=== PATIENT | female | born 1965 | race Caucasian/White ===

== ENCOUNTER 2019-08-20 11:38 | Emergency (ER) | payer BC, SELFPAY ==
[2019-08-20 11:42] VITALS: BP 157/91; PULSE 69; RESP 18; TEMP 36.2; O2SAT 98; BMI 26.2
--- NOTE | 2019-08-20 11:52 | W.ED.ALLEREA ---
HPI - Allergic Reaction General: Chief complaint: Allergic Reaction Stated complaint: bee sting/allergic Time Seen by Provider: 08/20/19 11:43 Source: patient Mode of arrival: ambulatory Limitations: no limitations History of Present Illness: HPI narrative: 54-year-old female here after getting an insect sting to her lower lip roughly 30 minutes ago. She states she is concerned that she has had severe allergic reactions in the past. She states she had some tongue swelling at first since resolved. She does have EpiPen at home but did not use it as it is . She took 2 Benadryl at home. Denies any shortness of breath or swelling at this time. She has no hives at this time. MD complaint: allergic reaction Associated symptoms: Deny abdominal pain, nausea or vomiting Review of Systems Const: Denies: fever(s), chills, body aches or change in appetite Eyes: Denies: blurry vision or eye discomfort ENMT: Denies: throat pain or dental pain Card: Denies: chest pain Resp: Denies: dyspnea GI: Denies: abdominal pain, nausea, vomiting or diarrhea : Denies: dysuria Musc: Denies: neck pain or back pain Skin/Breast: Reports: erythema Neuro: Denies: headache(s) Psych: Denies: depression Chris/Lymph: Denies: easy bruising All/Imm: Denies: urticaria Physical Exam Const: COMMON NORMALS: no acute distress, patient oriented x3 and healthy appearing HENMT: COMMON NORMALS: normocephalic and atraumatic HEAD & SCALP: normocephalic and atraumatic Eye: COMMON NORMALS: Equal, round and reactive pupils present and EOMs intact bilaterally PUPIL: Yes Equal, round and reactive pupils present Neck/C-Spine: COMMON NORMALS: full ROM and supple Chest: COMMONS NORMALS: normal inspection of the chest and normal palpation of entire chest wall Resp: COMMON NORMALS: normal respiratory effort, No retractions, No use of accessory muscles and clear to auscultation bilaterally AUSCULTATION: clear to auscultation bilaterally Cardio: COMMON NORMALS: regular rate, regular rhythm and No murmurs present (Cardio) RATE: regular rate RHYTHM: regular rhythm GI: COMMON NORMALS: Normal to inspection, nondistended, normoactive bowel sounds present, Soft to palpation, non-tender and no masses PALPATION: Yes Soft to palpation Extremity: COMMON NORMALS: normal to inspection and full ROM Neuro: COMMON NORMALS: patient oriented x3, moves all extremities and no focal motor deficits Psych: COMMON NORMALS: mental status grossly normal, Normal thought process present and cooperative THOUGHT PROCESS: Normal thought process present Skin: COMMON NORMALS: no rashes or lesions noted and no wounds NARRATIVE SKIN EXAM: Insect sting to lower lip GENERAL SKIN EXAM: no rashes or lesions noted Course Vital Signs: Vital signs: Vital Signs Temperature 97.2 F L 08/20/19 11:42 Pulse Rate 64 08/20/19 11:53 Respiratory Rate 18 08/20/19 11:53 Blood Pressure 157/91 08/20/19 11:53 Pulse Oximetry 100 08/20/19 11:53 MDM - Allergic Reaction MDM Narrative: Medical decision making narrative: Patient presents with an allergic reaction. Patient feels much improved here after Solu-Medrol and Benadryl. She has no swelling or hives. Will prescribe her an EpiPen and she is stable for discharge. She is to return if worsening. Discharge Plan Discharge Patient Disposition: Home, Self-Care Clinical Impression: Allergic reaction Qualifiers: Encounter type: initial encounter Qualified Code(s): T78.40XA - Allergy, unspecified, initial encounter Condition: Stable Prescriptions: New EpiPen 2-Trace 0.3 mg/0.3 mL auto-injector 0.3 mg IM Q1H PRN (Reason: anaphylaxis) Qty: 1 RF: 0 No Action Lipitor 40 mg Tablet 40 mg PO DAILY RF: 0 cetirizine 10 mg Tablet 10 mg PO DAILY RF: 0 aspirin 81 mg Tablet,Delayed Release (Dr/Ec) 81 mg PO DAILY RF: 0 Motrin IB 200 mg Tablet 200 mg PO Q6H PRN (Reason: Pain) RF: 0 ProAir HFA 90 mcg/actuation Hfa Aerosol Inhaler 1 puff INHALATION QID PRN (Reason: Shortness Of Breath) RF: 0 Proventil HFA 90 mcg/actuation Hfa Aerosol Inhaler 1 puff INHALATION QID PRN (Reason: Shortness Of Breath) RF: 0 Discharge Orders: Discharge Order (Routine); Ordered 08/20/19 Ordered By: Mariela Mendieta Discharge Diet: Advance as tolerated Discharge Activity: Resume usual activity Patient Instructions: Anaphylaxis (ED) Coding Level of Care Code ED Developmental Education Instructor for Chg Fwd Exam Comprehensive
[2019-08-20 11:53] VITALS: BP 157/91; PULSE 64; RESP 18; O2SAT 100
[2019-08-20] MEDS: diphenhydrAMINE 50 mg/mL SDV 1mL IVP (12:03)
[2019-08-20 13:31] VITALS: BP 123/64; PULSE 52; RESP 16; TEMP 36.5; O2SAT 100
== END 2019-08-20 13:35 | disposition home or self-care (01) ==
PROVIDERS: Emergency Provider Emergency Medicine
DX: T78.40XA Allergy, unspecified, initial encounter (principal); Z79.82 Long term (current) use of aspirin
CPT/HCPCS: 12345; 96374; 96375; 99282; 99283; J1200; J2930

== ENCOUNTER → 2020-05-23 10:03 | Outpatient (BNVA) | payer BC, SELFPAY | PROVIDERS: Visit Provider Obstetrics & Gynecology | DX: R10.2 Pelvic and perineal pain (principal); N85.4 Malposition of uterus; N83.292 Other ovarian cyst, left side | CPT/HCPCS: 76830 ==

== ENCOUNTER → 2020-05-28 14:45 | Outpatient (BNVA) | payer BC, SELFPAY | PROVIDERS: Visit Provider Obstetrics & Gynecology | DX: N95.0 Postmenopausal bleeding (principal); R10.2 Pelvic and perineal pain | CPT/HCPCS: 83001 ==

== ENCOUNTER → 2020-06-03 08:21 | Outpatient (BNVA) | payer BC, SELFPAY | PROVIDERS: Visit Provider Obstetrics & Gynecology | DX: N95.0 Postmenopausal bleeding (principal) | CPT/HCPCS: 88305 ==

== ENCOUNTER 2020-07-31 11:59 | Outpatient (CLI) | payer BC, SELFPAY ==
--- NOTE | 2020-07-31 12:00 | MM_ITS ---
WS: [id number] SCREENING DIGITAL MAMMOGRAM WITH CAD HISTORY: Z12.39 - Encounter for other screening for malignant neoplasm... COMPARISON: None available. Bilateral CC and MLO views submitted. Computer aided detection analyzed. Breast composition: There are scattered areas of fibroglandular density. Round nodule measuring 5 mm seen on the LEFT MLO projection posteriorly. Not identified on the CC projection. This may be a lymph node but a lucent hilum is not identified. There are also benign calcifications in the RIGHT breast. MM/[place] [id number] IMPRESSION: BI-RADS: 0-Incomplete: Need additional imaging evaluation FOLLOW UP: Need Additional Imaging LEFT breast: Spot compression views (CC and MLO). True ML. Ultrasound to follow if abnormality persists.
== END 2020-07-31 12:00 | disposition home or self-care (01) ==
LOC: RADSHAW 12:00
PROVIDERS: Visit Provider Obstetrics & Gynecology
DX: Z12.31 Encounter for screening mammogram for malignant neoplasm of breast (principal)
CPT/HCPCS: 77067

== ENCOUNTER 2020-08-19 08:44 | Outpatient (CLI) | payer BC, SELFPAY ==
--- NOTE | 2020-08-19 09:00 | MM_ITS ---
WS: [id number] ADDITIONAL VIEWS LEFT MAMMOGRAM LEFT BREAST ULTRASOUND HISTORY: Lymph node versus mass. COMPARISON: 07/31/2020 LEFT MAMMOGRAM: Spot compression views and true ML. Well-circumscribed 5 mm nodule in the upper outer quadrant of the LEFT breast towards the axillary ta il. Margins are well circumscribed. Fatty hilum is not definitely visualized but this is probably a l ymph node. LEFT BREAST ULTRASOUND 2-D and color Doppler imaging submitted. Ultrasound directed to the axillary tail of the LEFT breast. At 2:00, 6 cm from the nipple is a benig n-appearing lymph node measuring 5 mm. MM/[place] [id number] IMPRESSION: BI-RADS: 2-Benign FOLLOW UP: 1 Year Follow-up
--- NOTE | 2020-08-19 09:35 | US_ITS ---
WS: [id number] ADDITIONAL VIEWS LEFT MAMMOGRAM LEFT BREAST ULTRASOUND HISTORY: Lymph node versus mass. COMPARISON: 07/31/2020 LEFT MAMMOGRAM: Spot compression views and true ML. Well-circumscribed 5 mm nodule in the upper outer quadrant of the LEFT breast towards the axillary ta il. Margins are well circumscribed. Fatty hilum is not definitely visualized but this is probably a l ymph node. LEFT BREAST ULTRASOUND 2-D and color Doppler imaging submitted. Ultrasound directed to the axillary tail of the LEFT breast. At 2:00, 6 cm from the nipple is a benig n-appearing lymph node measuring 5 mm. US/US breast LT limited* [id number] IMPRESSION: BI-RADS: 2-Benign FOLLOW UP: 1 Year Follow-up
== END 2020-08-19 08:45 | disposition home or self-care (01) ==
LOC: RADSHAW 08:47
PROVIDERS: Visit Provider Obstetrics & Gynecology
DX: R92.2 Inconclusive mammogram (principal); N63.21 Unspecified lump in the left breast, upper outer quadrant
CPT/HCPCS: 76642; 77065

== ENCOUNTER 2020-11-24 11:33 | Emergency (ER) | payer BC, SELFPAY ==
[2020-11-24] VITALS (7 sets, daily range): BP systolic 124–177; BP diastolic 56–75; PULSE 56–76; RESP 16–18; TEMP 36.6–36.8; O2SAT 98–100; BMI 26.2
--- NOTE | 2020-11-24 12:28 | CTR_ITS ---
PROCEDURE INFORMATION: Exam: CTA Chest Without And With Contrast Exam date and time: 11/24/2020 12:28 PM Age: 55 years old Clinical indication: Sternal or substernal pain; Patient HX: C/O substernal cp after pulling injury and feeling a pop ; Additional info: Dissection TECHNIQUE: Imaging protocol: Computed tomographic angiography of the chest without and with contrast. 3D rendering (Not supervised by radiologist): MIP and/or 3D reconstructed images were created by the technologist. Radiation optimization: All CT scans at this facility use at least one of these dose optimization techniques: automated exposure control; mA and/or kV adjustment per patient size (includes targeted exams where dose is matched to clinical indication); or iterative reconstruction. Contrast material: OMNI 350; Contrast volume: 95 ml; Contrast route: INTRAVENOUS (IV); COMPARISON: CR XR chest 1V portable [id number] 11/24/2020 1:29 PM RADIATION DOSE METRICS: Total DLP (mGy-cm): 623.55 FINDINGS: Pulmonary arteries: Normal. No pulmonary emboli. Aorta: Unremarkable. No aortic aneurysm. No aortic dissection. Lungs: Unremarkable. No consolidation. No masses. Pleural spaces: Unremarkable. No pneumothorax. No pleural effusion. Heart: Multivessel atherosclerotic disease which involves the coronary arteries. Lymph nodes: Unremarkable. No enlarged lymph nodes. Bones/joints: There are small degenerative Schmorl's nodes in the T4, T5, and T6 vertebra associated with minimal chronic appearing anterior compression deformities of the T4 through T6 superior endplates. There are [id number] degenerative changes in the thoracic spine. Soft tissues: Unremarkable. CT/CT angio chest [id number] IMPRESSION: 1. Multivessel atherosclerotic disease which involves the coronary arteries. 2. There are small degenerative Schmorl's nodes in the T4 through T6 vertebra associated with minimal chronic appearing anterior compression deformities of the T4 through T6 superior endplates. 3. No evidence for aortic dissection. No pulmonary embolus. Radiation Dose CTDIVOL = (mGy): DLP = 623.55 (mGy-cm)
--- NOTE | 2020-11-24 12:28 | XRR_ITS ---
PROCEDURE INFORMATION: Exam: XR Chest Exam date and time: 11/24/2020 12:28 PM Age: 55 years old Clinical indication: Sternal or substernal pain; Patient HX: C/O substernal cp after feeling a pop TECHNIQUE: Imaging protocol: XR of the chest. Views: 1 view. COMPARISON: [place] [id number] 08/19/2020 9:07 AM FINDINGS: Lungs: Unremarkable. No consolidation. Pleural spaces: Unremarkable. No pleural effusion. No pneumothorax. Heart/Mediastinum: Unremarkable. No cardiomegaly. Bones/joints: Unremarkable. XR/XR chest 1V portable [id number] IMPRESSION: No acute findings. Radiation Dose CTDIVOL = (mGy): DLP = (mGy-cm)
--- NOTE | 2020-11-24 12:29 | ECG_ITS ---
[facility] Test Date: 2020-11-24 Pat Name: Karo Freitas Department: Room: Gender: Female Electrical Products Sales Engineer: : 1965 Requested By: Tadeo Lopez Order Number: [id number] Acevedo MD: Luz Burciaga M.D. Measurements Intervals [place] Rate: 60 P: 63 ND: 133 QRS: 63 QRSD: 96 T: 51 QT: 417 QTc: 418 Interpretive Statements SINUS RHYTHM No previous ECG available for comparison Electronically Signed On 11-24-2020 21:00:55 CDT by Luz Burciaga M.D. [id number]
--- NOTE | 2020-11-24 12:30 | W.ED.GENADLT ---
HPI - General Adult General: Chief complaint: General Medical Stated complaint: RIB/STERNUM INJURY Time Seen by Provider: 11/24/20 12:23 History of Present Illness: HPI narrative: 55-year-old female with history of hyperlipidemia presents due to substernal chest pain rating to the back between the shoulder blades. States this started last evening while she was working on her RV. States she felt a pop in her sternum and that is when the pain started. Reports that is rather severe but worse with palpation. Is not exertional or pleuritic. Denies any abdominal pain. Denies any shortness of breath nausea vomiting cough fevers or chills. Denies lower extremity pain or swelling. Denies previous history of AAA or dissection. Denies previous history of PE or DVT. States that she took 600 mg of ibuprofen this morning with very mild relief. Review of Systems Narrative: - CONSTITUTIONAL: Denies weight loss, fever and chills. - HEENT: Denies changes in vision and hearing. - RESPIRATORY: Denies SOB and cough. - CV: As above - GI: Denies abdominal pain, nausea, vomiting and diarrhea. - : Denies dysuria and urinary frequency. - MSK: Denies myalgia and joint pain. - SKIN: Denies rash and pruritus. - NEUROLOGICAL: Denies headache, weakness, numbness and syncope. - PSYCHIATRIC: Denies suicidal ideation [facility] PFSH: Family History Father Diabetes Hyperlipidemia Hypertension Heart disease Grandmother Diabetes paternal Hypertension paternal Family/Other Diabetes paternal cousins Heart disease paternal side Breast cancer maternal aunt 60's and maternal cousin 50's Mother Hypertension AA (aortic aneurysm) Thyroid condition Grandfather Hypertension paternal Denies family history of Colon cancer Ovarian cancer Clotting disorder Anesthesia complication Bleeding disorder Uterine cancer Stroke Social History Smoking and tobacco status: current every day smoker cigarettes Packs smoked per day: 1 Alcohol intake: current Alcohol intake frequency: holidays/special occasions only Alcohol type: beer and wine Physical Exam Narrative: EXAM NARRATIVE: - GENERAL: Alert and oriented x 3. No acute distress. Well-nourished. - EYES: EOMI. Anicteric. - HENT: Atraumatic, no C-spine tenderness. Moist mucous membranes. No scleral icterus. No cervical lymphadenopathy. - LUNGS: Clear to auscultation bilaterally. No accessory muscle use. Equal lung sounds bilaterally. No respiratory distress. - CARDIOVASCULAR: Regular rate and rhythm. No murmur. No JVD. - ABDOMEN: Soft, non-tender and non-distended. Negative CVA tenderness bilaterally, no rebound or guarding, negative Aguirre sign. No palpable masses. - EXTREMITIES: No edema. Non-tender. - SKIN: No rashes or lesions. Warm. - NEUROLOGIC: No meningismus or focal neurological deficits. CN II-XII grossly intact. - PSYCHIATRIC: Cooperative. Appropriate mood and affect. Course Vital Signs: Vital signs: Vital Signs Temperature 98 F 11/24/20 14:49 Pulse Rate 56 L 11/24/20 14:49 Respiratory Rate 16 11/24/20 14:49 Blood Pressure 141/56 11/24/20 14:49 Pulse Oximetry 98 11/24/20 14:49 MDM - General Adult MDM Narrative: Medical decision making narrative: 55-year-old presents due to chest pain. States that this started while working on a car but states that she was specifically pulling on the engine with her arms and felt like she popped something in her chest. CT scan does not reveal any sign of PE or dissection. EKG does not reveal any sign of acute ischemia or other acute abnormality and repeat is unchanging. Troponin is unremarkable. Remainder of lab work is unremarkable. Heart score is 3. Patient specifically states that she would rather follow-up with primary care and does not desire admission for stress test at the moment and I believe this is reasonable. Given that the pain is not otherwise exertional when walking or climbing stairs but only with pressure to the chest and with pulling of the arms do believe it is more likely to be musculoskeletal. Improved with Lidoderm and Flexeril prescription for above provided. At this time I believe patient would be safe for discharge and outpatient follow-up. Return precautions provided. Plan was reviewed with the patient who expressed understanding. Questions answered. Patient will follow up with PCP. Patient discharged in stable condition. Lab Data: Labs: Lab Results 11/24/20 11/24/20 11/24/20 12:33 12:33 12:33 WBC 8.9 10^3/uL 10^3/ uL (4.0-10.0) RBC 4.56 10^6/uL 10^6 /uL (4.1-5.3) Hgb 14.4 g/dL g/dL (11.5-15.3) Hct 42.5 % % (37.0-47.0) MCV 93.2 fl fl (81-99) MCH 31.6 pg pg (28.0-34.0) MCHC 33.9 g/dL g/dL (30.0-36.0) RDW 11.9 % L % (12.1-15.1) Plt Count 231 10^3/cmm 10^3 /cmm (130-400) MPV 11.1 fL H fL (7.4-10.4) Neut % (Auto) 71.3 % % Lymph % (Auto) 23.5 % % [place] % (Auto) 4.2 % % Eos % (Auto) 0.4 % % Baso % (Auto) 0.4 % % Neut # (Auto) 6.34 10^3/uL 10^3 /uL (1.8-7.7) Lymph # (Auto) 2.1 10^3/uL 10^3/ uL (0.8-4.8) [place] # (Auto) 0.4 10^3/uL 10^3/ uL (0.2-0.9) Eos # (Auto) 0.0 10^3/uL 10^3/ uL (0.0-0.8) Baso # (Auto) 0.0 10^3/uL 10^3/ uL (0.0-0.1) Nucleated RBC % (a uto) 0 % % Nucleated RBCs # 0.0 /100WBC /100W BC PT 13.30 SECONDS SEC ONDS (12.1-14.9) INR 0.98 (0.8-1.2) APTT 30.6 SECONDS SECO NDS (23.9-36.7) Sodium 139 mmol/L mmol/L (136-145) Potassium 4.2 mmol/L mmol/L (3.5-5.1) Chloride 101 mmol/L mmol/L (98-107) Carbon Dioxide 23 mmol/L mmol/L (22-29) Anion Gap 19.2 H (5-19) BUN 9 mg/dL mg/dL (6-20) Creatinine 0.5 mg/dL mg/dL (0.5-0.9) GFR Calculation 129.1 mL/min mL/m in (90-130) Glucose 110 mg/dL mg/dL (65-115) Calculated Osmolal ity 287 mOsm/kg mOsm/ kg (285-295) Calcium 10.0 mg/dL mg/dL (8.5-10.5) Total Bilirubin 0.4 mg/dL mg/dL (0.15-1.2) AST 22 U/L U/L (0-32) ALT 15 U/L U/L (0-33) Alkaline Phosphata se 64 IU/L IU/L (35-105) Troponin T Baselin e Troponin T 120 Min [place] Troponin T NT-Pro-B Natriuret Pep 92 pg/mL pg/mL (0-125) Total Protein 7.0 g/dL g/dL (6.6-8.7) Albumin 4.7 g/dL g/dL (3.5-5.2) Globulin 2.3 g/dL g/dL (1.3-4.6) Lipase 64 U/L H U/L (13-60) 11/24/20 11/24/20 12:33 14:42 WBC RBC Hgb Hct MCV MCH MCHC RDW Plt Count MPV Neut % (Auto) Lymph % (Auto) [place] % (Auto) Eos % (Auto) Baso % (Auto) Neut # (Auto) Lymph # (Auto) [place] # (Auto) Eos # (Auto) Baso # (Auto) Nucleated RBC % (a uto) Nucleated RBCs # PT INR APTT Sodium Potassium Chloride Carbon Dioxide Anion Gap BUN Creatinine GFR Calculation Glucose Calculated Osmolal ity Calcium Total Bilirubin AST ALT Alkaline Phosphata se Troponin T Baselin e 6 ng/L ng/L (0-10) Troponin T 120 Min [place] 6.00 ng/L ng/L (0-10) Delta Troponin T 0 ABS# ABS# (0-10) NT-Pro-B Natriuret Pep Total Protein Albumin Globulin Lipase EKG Data^: EKG 1: Computer generated interpretation: Chest CTA 11/24/20 12:28 IMPRESSION: 1. Multivessel atherosclerotic disease which involves the coronary arteries. 2. There are small degenerative Schmorl's nodes in the T4 through T6 vertebra associated with minimal chronic appearing anterior compression deformities of the T4 through T6 superior endplates. 3. No evidence for aortic dissection. No pulmonary embolus. Radiation Dose CTDIVOL = (mGy): DLP = 623.55 (mGy-cm) Chest X-Ray 11/24/20 12:28 IMPRESSION: No acute findings. Radiation Dose CTDIVOL = (mGy): DLP = (mGy-cm) Other EKG comments: Sinus rhythm, rate of 60, T wave flattening in aVL, lead is low voltage, T wave inversion in V2, otherwise no sign of acute ischemia or other acute abnormality. Second EKG, sinus bradycardia, rate of 50, not significantly changed from previous EKG. Discharge Plan Discharge Prescriptions: No Action multivitamin Tablet 1 tab PO DAILY RF: 0 Prempro 0.3-1.5 mg tablet 1 tab PO DAILY 90 Days Qty: 90 RF: 3 cetirizine 10 mg Tablet 10 mg PO DAILY RF: 0 aspirin 81 mg Tablet,Delayed Release (Dr/Ec) 81 mg PO DAILY RF: 0 Motrin IB 200 mg Tablet 200 mg PO Q6H PRN (Reason: Pain) RF: 0 Proventil HFA 90 mcg/actuation Hfa Aerosol Inhaler 1 puff INHALATION QID PRN (Reason: Shortness Of Breath) RF: 0 EpiPen 2-Trace 0.3 mg/0.3 mL auto-injector 0.3 mg IM Q1H PRN (Reason: anaphylaxis) Qty: 1 RF: 0 Coding Level of Care Code ED Stocking And Box Shop Supervisor for Kristineg Jase
[2020-11-24] MEDS: aspirin 81 mg Chew Tablet 324 MG PO (12:50)
[2020-11-24] MEDS: morphine 4 mg/mL SDV 1 mL IVP (12:50)
[2020-11-24 12:51] LABS: Basophils % 0.4 %; Eosinophils % 0.4 %; Hematocrit 42.5 % (37.0-47.0); Hemoglobin 14.4 g/dL (11.5-15.3); Lymphocytes # 2.1 10^3/uL (0.8-4.8); Lymphocytes % 23.5 %; Mean Corpuscular HGB Conc 33.9 g/dL (30.0-36.0); Mean Corpuscular Hemoglobin 31.6 pg (28.0-34.0); Mean Corpuscular Volume 93.2 fl (81-99); Mean Platelet Volume 11.1 fL (7.4-10.4); Monocytes # 0.4 10^3/uL (0.2-0.9); Monocytes % 4.2 %; Neutrophils # 6.34 10^3/uL (1.8-7.7); Neutrophils % 71.3 %; Nucleated Red Blood Cells % 0 %; Platelet Count 231 10^3/cmm (130-400); Red Blood Count 4.56 10^6/uL (4.1-5.3); Red Cell Distribution Width 11.9 % (12.1-15.1); White Blood Count 8.9 10^3/uL (4.0-10.0)
[2020-11-24] MEDS: ondansetron 2 mg/ML SDV 2 mL 4 MG IVP (12:51)
[2020-11-24] MEDS: labetalol 5 mg/mL SDV 20mL 10 MG IVP (12:51)
[2020-11-24 13:20] LABS: INR 0.98 (0.8-1.2)
[2020-11-24 13:21] LABS: Partial Thromboplastin Time 30.6 SECONDS (23.9-36.7)
[2020-11-24 13:34] LABS: Troponin(5th) Baseline 6 ng/L (0-10)
[2020-11-24 13:45] LABS: Alanine Aminotransferase 15 U/L (0-33); Albumin Level 4.7 g/dL (3.5-5.2); Alkaline Phosphatase 64 IU/L (35-105); Anion Gap 19.2 (5-19); Aspartate Amino Transferase 22 U/L (0-32); Blood Urea Nitrogen 9 mg/dL (6-20); Carbon Dioxide 23 mmol/L (22-29); Chloride 101 mmol/L (98-107); Globulin 2.3 g/dL (1.3-4.6); Glomerular Filtration Rate 129.1 mL/min (90-130); Glucose 110 mg/dL (65-115); Lipase 64 U/L (13-60); NT Pro B Type Natriuretic Pept 92 pg/mL (0-125); Osmolality Calculated 287 mOsm/kg (285-295); Potassium 4.2 mmol/L (3.5-5.1); Sodium 139 mmol/L (136-145); Total Bilirubin 0.4 mg/dL (0.15-1.2)
[2020-11-24] MEDS: iohexol 350 mg/mL 100 mL Btl IV (13:52)
--- NOTE | 2020-11-24 14:29 | ECG_ITS ---
[facility] Test Date: 2020-11-24 Pat Name: Karo Freitas Department: Room: Gender: Female Scale Tester: : 1965 Requested By: Tadeo Lopez Order Number: [id number] Acevedo MD: Luz Burciaga M.D. Measurements Intervals [place] Rate: 50 P: 58 MD: 136 QRS: 67 QRSD: 91 T: 55 QT: 442 QTc: 403 Interpretive Statements SINUS BRADYCARDIA Compared to ECG 11/24/2020 12:34:21 Sinus rhythm no longer present Electronically Signed On 11-24-2020 21:15:45 CDT by Luz Burciaga M.D. [id number]
[2020-11-24] MEDS: cyclobenzaprine 10 mg Tablet PO (14:56)
[2020-11-24 15:19] LABS: Troponin 5 2HR Delta 0 ABS# (0-10)
[2020-11-24] MEDS: lidocaine 5% Patch 1 PATCH TOPICAL (15:20)
== END 2020-11-24 16:23 | disposition home or self-care (01) ==
PROVIDERS: Emergency Provider Emergency Medicine
DX: R07.9 Chest pain, unspecified (principal); Z79.82 Long term (current) use of aspirin; F17.210 Nicotine dependence, cigarettes, uncomplicated
CPT/HCPCS: 71045; 71275; 80053; 83690; 83880; 84484; 85025; 85610; 85730; 93005; 99284; J2270; J2405; J3490; Q9967

== ENCOUNTER 2021-01-16 13:32 | Emergency (ER) | payer BC, SELFPAY ==
[2021-01-16 13:38] VITALS: BP 144/94; PULSE 140; RESP 19; TEMP 37.1; O2SAT 93; BMI 26.2
[2021-01-16] MEDS: sodium chloride 0.9% 1,000 ML 999 ML IV (13:41)
[2021-01-16] MEDS: diphenhydrAMINE 50 mg/mL SDV 1mL IVP (13:42)
--- NOTE | 2021-01-16 13:43 | ED_ITS ---
HPI - Allergic Reaction General: Chief complaint: Allergic Reaction Stated complaint: ALLERGIC REACTION Time Seen by Provider: 01/16/21 13:36 History of Present Illness: HPI narrative: Ms. Freitas is a 55-year-old lady with history of anaphylaxis who presents to the emergency department due to anaphylaxis. She has been at her baseline health without changes when she had what she believes is a bee sting her on her left hand. She rapidly developed shortness of breath and diffuse rash which is burning. No GI symptoms. She did have sensation of throat closing. She took 50 mg of Benadryl and took her EpiPen about 15 minutes prior to arrival which vastly improved her previously severe shortness of breath. She currently feels jittery and still has skin symptoms as well as mild shortness of breath. No other known specific changes to health, exacerbating, or alleviating factors identified. She has had similar episodes in the past though not as severe. Review of Systems General: Reports: 10 or more systems reviewed and unremarkable except in HPI and below PFSH ED PFSH: Family History Father Diabetes Hyperlipidemia Hypertension Heart disease Grandmother Diabetes paternal Hypertension paternal Family/Other Diabetes paternal cousins Heart disease paternal side Breast cancer maternal aunt 60's and maternal cousin 50's Mother Hypertension AA (aortic aneurysm) Thyroid condition Grandfather Hypertension paternal Denies family history of Colon cancer Ovarian cancer Clotting disorder Anesthesia complication Bleeding disorder Uterine cancer Stroke Social History Smoking and tobacco status: current every day smoker cigarettes Packs smoked per day: 1 Alcohol intake: current Alcohol intake frequency: holidays/special occasions only Alcohol type: beer and wine Physical Exam Narrative: EXAM NARRATIVE: GENERAL/CONSTITUTIONAL -mildly ill-appearing. Eyes - PERRL, no conjunctival injection ENMT - Atraumatic external nose and ears. Moist mucous membranes NECK - supple. trachea midline CARDIOVASCULAR - tachycardic rate and regular rhythm. Cap refill approximately 3 seconds RESPIRATORY - expiratory wheezes in all alexander. ABDOMEN/GI - Nontender/Nondistended. MSK - Extremities without obvious deformity or tenderness to palpation. Stinger no longer present. SKIN - Warm, Dry. Generalized erythematous rash NEURO - alert and appropriately oriented. Moves all extremities equally. Course ED course: - Patient was seen and evaluated by me at bedside - Patient placed on cardiac monitors, IV access obtained - Initial evaluation notable for signs of allergic reaction -Fluids and symptom treatment ordered - Imaging notable for no acute finding on chest x-ray - Upon serial reexamination after treatment the patient was significantly improved with near complete resolution of symptoms without recurrence or worsening after period of observation - Based on patient history, evaluation, labs, and imaging as interpreted the most likely cause of the patient's condition is anaphylactic reaction - The results of ED evaluation were discussed with the patient including prescriptions and/or symptomatic cares (if applicable) including appropriate and responsible use, followup plan, and return precautions. The patient verbalized understanding and felt safe for discharge. - Patient discharged in satisfactory condition. Vital Signs: Vital signs: Vital Signs Temperature 98.7 F 01/16/21 13:38 Pulse Rate 98 01/16/21 17:37 Respiratory Rate 17 01/16/21 17:37 Blood Pressure 119/55 01/16/21 17:37 Pulse Oximetry 96 01/16/21 17:37 MDM - Allergic Reaction Medical Records: Attestation: I reviewed the patient's medical records. Lab Data: Attestation: I reviewed the patient's lab results. EKG Data^: EKG 1: Attestation: I personally reviewed and interpreted this EKG as follows: EKG interpretation date: 01/16/21 EKG interpretation time: 15:28 Interpretation: Twelve-lead EKG shows a regular rhythm at a rate of 112. HI interval 127, QRS duration 97, QTc 362. Normal axis. Interpretation: Sinus tachycardia. Discharge Plan Discharge Patient Disposition: Home Clinical Impression: Anaphylaxis Condition: Stable Prescriptions: New Pepcid 40 mg tablet 40 mg PO BID Qty: 10 RF: 0 EpiPen 2-Trace 0.3 mg/0.3 mL auto-injector 0.3 mg IM Q10M PRN (Reason: anaphylaxis) Qty: 2 RF: 3 No Action multivitamin Tablet 1 tab PO DAILY RF: 0 Prempro 0.3-1.5 mg tablet 1 tab PO DAILY 90 Days Qty: 90 RF: 3 ibuprofen [Motrin IB] 200 mg Tablet 200 mg PO Q6H PRN (Reason: Pain) RF: 0 albuterol sulfate [Proventil HFA] 90 mcg/actuation Hfa Aerosol Inhaler 1 puff INHALATION QID PRN (Reason: Shortness Of Breath) RF: 0 epinephrine [EpiPen 2-Trace] 0.3 mg/0.3 mL auto-injector 0.3 mg IM Q1H PRN (Reason: anaphylaxis) Qty: 1 RF: 0 cyclobenzaprine 5 mg tablet 5 mg PO TID PRN (Reason: muscle spasm) Qty: 10 RF: 0 loratadine 10 mg Tablet 10 mg PO DAILY RF: 0 Lidoderm 5 % adhesive patch,medicated 1 patch topical DAILY PRN (Reason: Pain) RF: 0 Discharge Orders: Discharge ED (Routine); Ordered 01/16/21 Ordered By: Domingo Muñoz Discharge Diet: Usual diet Discharge Activity: Resume usual activity Patient Instructions: Anaphylaxis (ED) Activity Restrictions/Additional Instructions: Please follow-up with your primary care provider. Return as needed. Coding Level of Care Code ED [employer] Contractor for Aleksander Laguna
[2021-01-16] MEDS: famotidine 20 mg/2 mL INJ 40 MG IVP (13:47)
--- NOTE | 2021-01-16 13:55 | PC.NURSE ---
pt reports that she is having dizziness and difficulty speaking. dr. andrea informed and presents to bedside.
[2021-01-16] MEDS: ipratropium-albuterol 3 mL Neb 9 ML INHALATION (13:58)
[2021-01-16 14:02] VITALS: PULSE 89; RESP 16; O2SAT 94
[2021-01-16] MEDS: dexamethasone 10 mg/mL INJ IVP (14:05)
[2021-01-16 14:13] VITALS: PULSE 88; RESP 16; O2SAT 96
[2021-01-16 15:28] VITALS: BP 145/93; PULSE 126; RESP 20; O2SAT 97
--- NOTE | 2021-01-16 15:30 | XR_ITS ---
WS: [id number] Exam: XR chest 1V portable [id number] Date/Time of Exam: 01/16/2021 3:30 PM Reason For Exam: chest pain, anaphylaxis Comparison 11/24/2020. Findings: The lungs are clear and fully expanded. Costophrenic angles are sharp. No infiltrates. Bronchovascula r relief appears normal. Cardiac silhouette is unremarkable. Bony elements are intact. XR/XR chest 1V portable [id number] IMPRESSION: Unremarkable chest radiograph.
[2021-01-16 15:44] VITALS: BP 151/80; PULSE 117; RESP 18; O2SAT 95
--- NOTE | 2021-01-16 16:48 | ECG_ITS ---
[facility] Test Date: 2021-01-16 Pat Name: Karo Freitas Department: Room: Gender: Female Events Solutions Consultant: : 1965 Requested By: Domingo Muñoz Order Number: [id number] Acevedo MD: Dmitry Jenkins M.D. Measurements Intervals [place] Rate: 112 P: 65 OR: 127 QRS: 49 QRSD: 97 T: 48 QT: 296 QTc: 405 Interpretive Statements SINUS TACHYCARDIA POSSIBLE LEFT ATRIAL ENLARGEMENT [-0.1mV P-WAVE IN V1/V2] NONSPECIFIC ST & T-WAVE ABNORMALITY Compared to ECG 11/24/2020 14:37:33 T-wave abnormality now present Sinus bradycardia no longer present Electronically Signed On 01-18-2021 7:46:52 [employer] by Dmitry Jenkins M.D. [id number]
[2021-01-16 17:37] VITALS: BP 119/55; PULSE 98; RESP 17; O2SAT 96
== END 2021-01-16 17:42 | disposition home or self-care (01) ==
PROVIDERS: Emergency Provider Emergency Medicine
DX: T78.2XXA Anaphylactic shock, unspecified, initial encounter (principal); F17.210 Nicotine dependence, cigarettes, uncomplicated
CPT/HCPCS: 71045; 93005; 94640; 96361; 96374; 96375; 99284; J1100; J1200; J2930; J3490; J7030

== ENCOUNTER 2021-06-21 10:12 | Emergency (ER) | payer BC, SELFPAY ==
[2021-06-21 10:17] VITALS: BP 182/85; PULSE 77; RESP 16; TEMP 37.2; O2SAT 100; BMI 28.3
--- NOTE | 2021-06-21 10:30 | XRR_ITS ---
PROCEDURE INFORMATION: Exam: XR Chest Exam date and time: 06/21/2021 10:44 AM Age: 56 years old Clinical indication: Pain; Left-sided; Additional info: Exertional SOB, cp TECHNIQUE: Imaging protocol: XR of the chest. Views: 1 view. COMPARISON: CR XR chest 1V portable [id number] 01/16/2021 3:35 PM FINDINGS: Lungs: Unremarkable. No consolidation. Pleural spaces: Unremarkable. No pleural effusion. No pneumothorax. Heart/Mediastinum: Unremarkable. No cardiomegaly. Bones/joints: Unremarkable. XR/XR chest 1V portable [id number] IMPRESSION: No acute findings.
--- NOTE | 2021-06-21 10:30 | ECG_ITS ---
[facility] Test Date: 2021-06-21 Pat Name: Karo Freitas Department: Room: Gender: Female Control Systems Technician: : 1965 Requested By: Randall Almanza Order Number: [id number] Acevedo MD: Luz Burciaga M.D. Measurements Intervals [place] Rate: 75 P: 61 NC: 119 QRS: 73 QRSD: 88 T: 52 QT: 375 QTc: 420 Interpretive Statements SINUS RHYTHM WITH SHORT NC INTERVAL Compared to ECG 01/16/2021 15:26:06 Short NC interval now present Sinus tachycardia no longer present T-wave abnormality no longer present Electronically Signed On 06-21-2021 12:39:02 CDT by Luz Burciaga M.D. [id number]
--- NOTE | 2021-06-21 10:31 | W.ED.CHESTPA ---
Documented by User: REI Wynne 06/21/21 14:05 HPI - Chest Pain General: Chief Complaint: Chest Pain Stated Complaint: CP Time Seen by Provider: 06/21/21 10:24 History of Present Illness: Is a pleasant 56-year-old female who presents with exertional shortness of breath that occurred yesterday when she is [facility] while in improved. Then she was at a soccer game and chased after her grandson for a little bit and she felt some chest pain and shortness of breath. Patient feels better now. Patient has a history of low thyroid and anxiety. Patient strong family history of cardiac disease early onset and her dad age 42. Patient smoked for a good number years quit smoking in February after having about with COVID. Patient denies any other present problems. Denies any crushing chest pressure ordiaphoresis Patient had cardiac work-up in the past and was found to be negative. Associated symptoms: Reports abdominal pain and dyspnea (With exertion); Deny fever(s) Review of Systems Const: Denies: fever(s) or chills Eyes: Denies: eye discomfort ENMT: Denies: throat pain Card: Reports: chest pain (This morning after chasing after her grandson.) and dyspnea on exertion Resp: Reports: dyspnea (With exertion); Denies: non-productive cough GI: Reports: abdominal pain; Denies: change in bowel habits Musc: Denies: joint pain Skin/Breast: Denies: rash Neuro: Denies: headache(s) Psych: Denies: anxiety or depression Chris/Lymph: Denies: easy bruising or enlarged lymph nodes [facility] ED PFSH: Family History Father Diabetes Hyperlipidemia Hypertension Heart disease Grandmother Diabetes paternal Hypertension paternal Family/Other Diabetes paternal cousins Heart disease paternal side Breast cancer maternal aunt 60's and maternal cousin 50's Mother Hypertension AA (aortic aneurysm) Thyroid condition Grandfather Hypertension paternal Denies family history of Colon cancer Ovarian cancer Clotting disorder Anesthesia complication Bleeding disorder Uterine cancer Stroke Social History (Updated 06/21/21 @ 10:32 by REI Wynne) Alcohol intake: current Alcohol intake frequency: holidays/special occasions only Alcohol type: beer and wine Female Reproductive History: Other reproductive history: Men[facility] Information: Father's had stents and heart attack at age 42 Physical Exam Const: COMMON NORMALS: no acute distress and patient oriented x3 GENERAL APPEARANCE: cooperative, well kempt and well developed HENMT: COMMON NORMALS: normocephalic, external ears normal and Normal external nose present HEAD & SCALP: normocephalic NOSE: Normal external nose present EXTERNAL EAR: Yes external ears normal MOUTH: Normal oral and palatal mucosa present THROAT: posterior oropharynx normal Eye: COMMON NORMALS: EOMs intact bilaterally and conjunctivae normal GENERAL EYE: appearance normal, both eyes and all related structures CONJUNCTIVA: Yes conjunctivae normal SCLERA: sclerae normal Neck/C-Spine: COMMON NORMALS: full ROM GENERAL: Yes normal visual inspection Lymph: LYMPHATIC: no lymphadenopathy noted Chest: COMMONS NORMALS: normal inspection of the chest Resp: COMMON NORMALS: normal respiratory effort and No use of accessory muscles EFFORT & INSPECTION: Yes able to speak in complete sentences Cardio: COMMON NORMALS: regular rate RATE: regular rate GI: INSPECTION: Yes normal to inspection Back/Pelvis: COMMON NORMALS: thoraco-lumbar ROM normal Extremity: COMMON NORMALS: normal to inspection and full ROM Neuro: COMMON NORMALS: patient oriented x3 SPEECH: speech normal GAIT: Yes Normal gait present Psych: COMMON NORMALS: mental status grossly normal APPEARANCE: Yes well kempt ACTIVITY/MOTOR BEHAVIOR: Yes appropriate eye contact Skin: RASHES: no rashes Course Vital Signs: Vital signs: Vital Signs Temperature 99.0 F 06/21/21 10:17 Pulse Rate 58 L 06/21/21 14:19 Respiratory Rate 20 H 06/21/21 14:19 Blood Pressure 180/79 06/21/21 14:19 Pulse Oximetry 99 06/21/21 14:19 MDM - Chest Pain Medical Decision Making Patient presents here today with exertional shortness of breath that occurred yesterday and then had this same episode today with some chest pain in center of her left chest. Work appears negative for any concerning findings. EKG chest x-ray and laboratory work was negative. She has a history of generalized anxiety idisorder. Patient's had a negative stress test in the past. Patient travels in a motor home and lives in [place] and is up here visiting [place]. I encouraged her to follow-up with her primary care/flue gas analyst as soon as possible to see about getting a another stress test done. Also encouraged to take baby aspirin today which she is currently doing. Both troponins were same with no change. Lab Data : 06/21/21 11:16 06/21/21 11:16 Radiology Impressions Chest X-Ray 06/21/21 10:30 IMPRESSION: No acute findings. Laboratory Results WBC 7.5 10^3/uL (4.0-10.0) 06/21/21 11:16 RBC 4.80 10^6/uL (4.1-5.3) 06/21/21 11:16 Hgb 14.8 g/dL (11.5-15.3) 06/21/21 11:16 Hct 44.5 % (37.0-47.0) 06/21/21 11:16 MCV 92.7 fl (81-99) 06/21/21 11:16 MCH 30.8 pg (28.0-34.0) 06/21/21 11:16 MCHC 33.3 g/dL (30.0-36.0) 06/21/21 11:16 RDW 12.5 % (12.1-15.1) 06/21/21 11:16 Plt Count 286 10^3/cmm (130-400) 06/21/21 11:16 MPV 10.2 fL (7.4-10.4) 06/21/21 11:16 Neut % (Auto) 73.3 % 06/21/21 11:16 Lymph % (Auto) 18.8 % 06/21/21 11:16 Lamb % (Auto) 5.4 % 06/21/21 11:16 Eos % (Auto) 1.5 % 06/21/21 11:16 Baso % (Auto) 0.7 % 06/21/21 11:16 Neut # (Auto) 5.48 10^3/uL (1.8-7.7) 06/21/21 11:16 Lymph # (Auto) 1.4 10^3/uL (0.8-4.8) 06/21/21 11:16 Lamb # (Auto) 0.4 10^3/uL (0.2-0.9) 06/21/21 11:16 Eos # (Auto) 0.1 10^3/uL (0.0-0.8) 06/21/21 11:16 Baso # (Auto) 0.1 10^3/uL (0.0-0.1) 06/21/21 11:16 Nucleated RBC % (auto) 0 % 06/21/21 11:16 Nucleated RBCs # 0.0 /100WBC 06/21/21 11:16 PT 11.60 SECONDS (12.1-14.9) L 06/21/21 11:16 INR 0.82 (0.8-1.2) 06/21/21 11:16 Sodium 140 mmol/L (136-145) 06/21/21 11:16 Potassium 4.1 mmol/L (3.5-5.1) 06/21/21 11:16 Chloride 99 mmol/L (98-107) 06/21/21 11:16 Carbon Dioxide 26 mmol/L (22-29) 06/21/21 11:16 Anion Gap 19.1 (5-19) H 06/21/21 11:16 BUN 12 mg/dL (6-20) 06/21/21 11:16 Creatinine 0.6 mg/dL (0.5-0.9) 06/21/21 11:16 GFR Calculation 104.2 mL/min (90-130) 06/21/21 11:16 Glucose 98 mg/dL (65-115) 06/21/21 11:16 Calculated Osmolality 290 mOsm/kg (285-295) 06/21/21 11:16 Calcium 10.6 mg/dL (8.5-10.5) H 06/21/21 11:16 Total Bilirubin 0.4 mg/dL (0.15-1.2) 06/21/21 11:16 AST 20 U/L (0-32) 06/21/21 11:16 ALT 21 U/L (0-33) 06/21/21 11:16 Alkaline Phosphatase 81 IU/L (35-105) 06/21/21 11:16 Troponin T Baseline 6 ng/L (0-10) 06/21/21 11:16 Troponin T 120 Minute 6.00 ng/L (0-10) 06/21/21 13:15 Delta Troponin T 0 ABS# (0-10) 06/21/21 13:15 NT-Pro-B Natriuret Pep 36 pg/mL (0-125) 06/21/21 11:16 Total Protein 8.6 g/dL (6.6-8.7) 06/21/21 11:16 Albumin 5.4 g/dL (3.5-5.2) H 06/21/21 11:16 Globulin 3.2 g/dL (1.3-4.6) 06/21/21 11:16 Urine Color Yellow (Yellow) 06/21/21 11:16 Urine Appearance Clear (CLEAR) 06/21/21 11:16 Urine pH 8 (5-7) H 06/21/21 11:16 Ur Specific Mutual 1.010 (1.005-1.030) 06/21/21 11:16 Urine Protein Neg (Negative) 06/21/21 11:16 Urine Glucose (UA) Norm (Normal) 06/21/21 11:16 Urine Ketones Negative (Negative) 06/21/21 11:16 Urine Blood Neg (Negative) 06/21/21 11:16 Urine Nitrate Negative (Negative) 06/21/21 11:16 Urine Bilirubin Neg (Negative) 06/21/21 11:16 Prot Sulfosalicylic Acd Negative (Negative) 06/21/21 11:16 Urine Urobilinogen Norm mg/dL (Negative) 06/21/21 11:16 Ur Leukocyte Esterase Negative (Negative) 06/21/21 11:16 Discharge Plan Discharge Patient Disposition: Home Clinical Impression: Atypical chest pain, Exertional shortness of breath, Generalized anxiety disorder Prescriptions: No Action multivitamin Tablet 1 tab PO DAILY 0RF ibuprofen [Motrin IB] 200 mg Tablet 200 mg PO Q6H PRN (Reason: Pain) 0RF albuterol sulfate [Proventil HFA] 90 mcg/actuation Hfa Aerosol Inhaler 1 puff INHALATION QID PRN (Reason: Shortness Of Breath) 0RF epinephrine [EpiPen 2-Trace] 0.3 mg/0.3 mL auto-injector 0.3 mg IM Q1H PRN (Reason: anaphylaxis) Qty: 1 0RF Rx Instructions: do not exceed 12 doses per 24 hrs loratadine 10 mg Tablet 10 mg PO DAILY PRN (Reason: Allergic Reaction) 0RF atorvastatin 40 mg Tablet 40 mg PO DAILY 0RF levothyroxine 100 mcg Tablet 100 mcg PO DAILY 0RF Lexapro 10 mg Tablet 10 mg PO DAILY 0RF Pepcid 40 mg tablet 40 mg PO BID PRN (Reason: Allergic Reaction) 0RF Discharge Orders: Discharge ED (Routine); Ordered 06/21/21 Ordered By: Randall Almanza Discharge Diet: Usual diet Discharge Activity: Increase activity as tolerated Patient Instructions: Chest Pain (ED) Activity Restrictions/Additional Instructions: Follow-up with your primary care provider and her flue gas analyst and see about getting exercise stress test scheduled. Make sure you continue take a baby aspirin daily. If worsening symptoms follow-up in ER wherever you might be at. Coding Level of Care Code ED Senior Operations Manager for Chg Fwd Exam Comprehensive Documented by User: Domingo Muñoz MD 06/26/21 01:24 HPI - Chest Pain General: Chief Complaint: Chest Pain Stated Complaint: CP Time Seen by Provider: 06/21/21 10:24 PFSH ED PFSH: Family History Father Diabetes Hyperlipidemia Hypertension Heart disease Grandmother Diabetes paternal Hypertension paternal Family/Other Diabetes paternal cousins Heart disease paternal side Breast cancer maternal aunt 60's and maternal cousin 50's Mother Hypertension AA (aortic aneurysm) Thyroid condition Grandfather Hypertension paternal Denies family history of Colon cancer Ovarian cancer Clotting disorder Anesthesia complication Bleeding disorder Uterine cancer Stroke Social History (Updated 06/21/21 @ 10:32 by REI Wynne) Alcohol intake: current Alcohol intake frequency: holidays/special occasions only Alcohol type: beer and wine Course Vital Signs: Vital signs: Vital Signs Temperature 99.0 F 06/21/21 10:17 Pulse Rate 58 L 06/21/21 14:19 Respiratory Rate 20 H 06/21/21 14:19 Blood Pressure 180/79 06/21/21 14:19 Pulse Oximetry 99 06/21/21 14:19 MDM - Chest Pain Medical Decision Making Patient presents here today with exertional shortness of breath that occurred yesterday and then had this same episode today with some chest pain in center of her left chest. Work appears negative for any concerning findings. EKG chest x-ray and laboratory work was negative. She has a history of generalized anxiety idisorder. Patient's had a negative stress test in the past. Patient travels in a motor home and lives in [place] and is up here visiting grandkids. I encouraged her to follow-up with her primary care/flue gas analyst as soon as possible to see about getting a another stress test done. Also encouraged to take baby aspirin today which she is currently doing. Both troponins were same with no change. I have reviewed this documentation by Randall Muñoz MD Emergency Medicine Lab Data : 06/21/21 11:16 06/21/21 11:16 Radiology Impressions Chest X-Ray 06/21/21 10:30 IMPRESSION: No acute findings. Laboratory Results WBC 7.5 10^3/uL (4.0-10.0) 06/21/21 11:16 RBC 4.80 10^6/uL (4.1-5.3) 06/21/21 11:16 Hgb 14.8 g/dL (11.5-15.3) 06/21/21 11:16 Hct 44.5 % (37.0-47.0) 06/21/21 11:16 MCV 92.7 fl (81-99) 06/21/21 11:16 MCH 30.8 pg (28.0-34.0) 06/21/21 11:16 MCHC 33.3 g/dL (30.0-36.0) 06/21/21 11:16 RDW 12.5 % (12.1-15.1) 06/21/21 11:16 Plt Count 286 10^3/cmm (130-400) 06/21/21 11:16 MPV 10.2 fL (7.4-10.4) 06/21/21 11:16 Neut % (Auto) 73.3 % 06/21/21 11:16 Lymph % (Auto) 18.8 % 06/21/21 11:16 Lamb % (Auto) 5.4 % 06/21/21 11:16 Eos % (Auto) 1.5 % 06/21/21 11:16 Baso % (Auto) 0.7 % 06/21/21 11:16 Neut # (Auto) 5.48 10^3/uL (1.8-7.7) 06/21/21 11:16 Lymph # (Auto) 1.4 10^3/uL (0.8-4.8) 06/21/21 11:16 Lamb # (Auto) 0.4 10^3/uL (0.2-0.9) 06/21/21 11:16 Eos # (Auto) 0.1 10^3/uL (0.0-0.8) 06/21/21 11:16 Baso # (Auto) 0.1 10^3/uL (0.0-0.1) 06/21/21 11:16 Nucleated RBC % (auto) 0 % 06/21/21 11:16 Nucleated RBCs # 0.0 /100WBC 06/21/21 11:16 PT 11.60 SECONDS (12.1-14.9) L 06/21/21 11:16 INR 0.82 (0.8-1.2) 06/21/21 11:16 Sodium 140 mmol/L (136-145) 06/21/21 11:16 Potassium 4.1 mmol/L (3.5-5.1) 06/21/21 11:16 Chloride 99 mmol/L (98-107) 06/21/21 11:16 Carbon Dioxide 26 mmol/L (22-29) 06/21/21 11:16 Anion Gap 19.1 (5-19) H 06/21/21 11:16 BUN 12 mg/dL (6-20) 06/21/21 11:16 Creatinine 0.6 mg/dL (0.5-0.9) 06/21/21 11:16 GFR Calculation 104.2 mL/min (90-130) 06/21/21 11:16 Glucose 98 mg/dL (65-115) 06/21/21 11:16 Calculated Osmolality 290 mOsm/kg (285-295) 06/21/21 11:16 Calcium 10.6 mg/dL (8.5-10.5) H 06/21/21 11:16 Total Bilirubin 0.4 mg/dL (0.15-1.2) 06/21/21 11:16 AST 20 U/L (0-32) 06/21/21 11:16 ALT 21 U/L (0-33) 06/21/21 11:16 Alkaline Phosphatase 81 IU/L (35-105) 06/21/21 11:16 Troponin T Baseline 6 ng/L (0-10) 06/21/21 11:16 Troponin T 120 Minute 6.00 ng/L (0-10) 06/21/21 13:15 Delta Troponin T 0 ABS# (0-10) 06/21/21 13:15 NT-Pro-B Natriuret Pep 36 pg/mL (0-125) 06/21/21 11:16 Total Protein 8.6 g/dL (6.6-8.7) 06/21/21 11:16 Albumin 5.4 g/dL (3.5-5.2) H 06/21/21 11:16 Globulin 3.2 g/dL (1.3-4.6) 06/21/21 11:16 Urine Color Yellow (Yellow) 06/21/21 11:16 Urine Appearance Clear (CLEAR) 06/21/21 11:16 Urine pH 8 (5-7) H 06/21/21 11:16 Ur Specific Mutual 1.010 (1.005-1.030) 06/21/21 11:16 Urine Protein Neg (Negative) 06/21/21 11:16 Urine Glucose (UA) Norm (Normal) 06/21/21 11:16 Urine Ketones Negative (Negative) 06/21/21 11:16 Urine Blood Neg (Negative) 06/21/21 11:16 Urine Nitrate Negative (Negative) 06/21/21 11:16 Urine Bilirubin Neg (Negative) 06/21/21 11:16 Prot Sulfosalicylic Acd Negative (Negative) 06/21/21 11:16 Urine Urobilinogen Norm mg/dL (Negative) 06/21/21 11:16 Ur Leukocyte Esterase Negative (Negative) 06/21/21 11:16 Discharge Plan Discharge Patient Disposition: Home Clinical Impression: Atypical chest pain, Exertional shortness of breath, Generalized anxiety disorder Prescriptions: No Action multivitamin Tablet 1 tab PO DAILY 0RF ibuprofen [Motrin IB] 200 mg Tablet 200 mg PO Q6H PRN (Reason: Pain) 0RF albuterol sulfate [Proventil HFA] 90 mcg/actuation Hfa Aerosol Inhaler 1 puff INHALATION QID PRN (Reason: Shortness Of Breath) 0RF epinephrine [EpiPen 2-Trace] 0.3 mg/0.3 mL auto-injector 0.3 mg IM Q1H PRN (Reason: anaphylaxis) Qty: 1 0RF Rx Instructions: do not exceed 12 doses per 24 hrs loratadine 10 mg Tablet 10 mg PO DAILY PRN (Reason: Allergic Reaction) 0RF atorvastatin 40 mg Tablet 40 mg PO DAILY 0RF levothyroxine 100 mcg Tablet 100 mcg PO DAILY 0RF Lexapro 10 mg Tablet 10 mg PO DAILY 0RF Pepcid 40 mg tablet 40 mg PO BID PRN (Reason: Allergic Reaction) 0RF Discharge Orders: Discharge ED (Routine); Ordered 06/21/21 Ordered By: Randall Almanza Discharge Diet: Usual diet Discharge Activity: Increase activity as tolerated Patient Instructions: Chest Pain (ED) Activity Restrictions/Additional Instructions: Follow-up with your primary care provider and her flue gas analyst and see about getting exercise stress test scheduled. Make sure you continue take a baby aspirin daily. If worsening symptoms follow-up in ER wherever you might be at. Coding Level of Care Code ED Senior Operations Manager for Aleksander Fwfavian Exam Comprehensive
[2021-06-21 11:24] LABS: Basophils # 0.1 10^3/uL (0.0-0.1); Basophils % 0.7 %; Eosinophils # 0.1 10^3/uL (0.0-0.8); Eosinophils % 1.5 %; Hematocrit 44.5 % (37.0-47.0); Hemoglobin 14.8 g/dL (11.5-15.3); Lymphocytes # 1.4 10^3/uL (0.8-4.8); Lymphocytes % 18.8 %; Mean Corpuscular HGB Conc 33.3 g/dL (30.0-36.0); Mean Corpuscular Hemoglobin 30.8 pg (28.0-34.0); Mean Corpuscular Volume 92.7 fl (81-99); Mean Platelet Volume 10.2 fL (7.4-10.4); Monocytes # 0.4 10^3/uL (0.2-0.9); Monocytes % 5.4 %; Neutrophils # 5.48 10^3/uL (1.8-7.7); Neutrophils % 73.3 %; Nucleated Red Blood Cells % 0 %; Platelet Count 286 10^3/cmm (130-400); Red Cell Distribution Width 12.5 % (12.1-15.1); White Blood Count 7.5 10^3/uL (4.0-10.0)
[2021-06-21 11:26] LABS: Add Urine Microscopic? NO; Charge for UA Resulting for Rev
[2021-06-21 11:28] LABS: Bilirubin Urine Neg (Negative); Blood Urine Neg (Negative); Glucose Urine UA Norm (Normal); Ketones Urine Negative (Negative); Leukocyte Esterase Urine Negative (Negative); Nitrate Urine Negative (Negative); Protein Urine Neg (Negative); Sulfosalicylic Acid Urine Negative (Negative); Urine Appearance Clear (CLEAR); Urine Color Yellow (Yellow); Urobilinogen Urine Norm (Negative); pH Urine 8 (5-7)
[2021-06-21 11:38] LABS: INR 0.82 (0.8-1.2)
[2021-06-21 11:43] LABS: Troponin(5th) Baseline 6 ng/L (0-10)
[2021-06-21 11:51] LABS: Alanine Aminotransferase 21 U/L (0-33); Albumin Level 5.4 g/dL (3.5-5.2); Alkaline Phosphatase 81 IU/L (35-105); Anion Gap 19.1 (5-19); Aspartate Amino Transferase 20 U/L (0-32); Blood Urea Nitrogen 12 mg/dL (6-20); Calcium 10.6 mg/dL (8.5-10.5); Carbon Dioxide 26 mmol/L (22-29); Chloride 99 mmol/L (98-107); Globulin 3.2 g/dL (1.3-4.6); Glomerular Filtration Rate 104.2 mL/min (90-130); Glucose 98 mg/dL (65-115); NT Pro B Type Natriuretic Pept 36 pg/mL (0-125); Osmolality Calculated 290 mOsm/kg (285-295); Potassium 4.1 mmol/L (3.5-5.1); Sodium 140 mmol/L (136-145); Total Bilirubin 0.4 mg/dL (0.15-1.2); Total Protein 8.6 g/dL (6.6-8.7)
--- NOTE | 2021-06-21 11:53 | PC.NURSE ---
Pt placed on cardiac monitoring upon arrival into room.
--- NOTE | 2021-06-21 12:30 | ECG_ITS ---
[facility] Test Date: 2021-06-21 Pat Name: Karo Freitas Department: Room: Gender: Female Staff Nurse Midwife: : 1965 Requested By: Randall Almanza Order Number: [id number] Curtis MD: Luz Burciaga M.D. Measurements Intervals [place] Rate: 52 P: 65 MT: 128 QRS: 75 QRSD: 88 T: 60 QT: 412 QTc: 384 Interpretive Statements SINUS BRADYCARDIA Compared to ECG 06/21/2021 10:35:23 Sinus rhythm no longer present Short MT interval no longer present Electronically Signed On 06-21-2021 12:45:57 CDT by Luz Burciaga M.D. [id number]
[2021-06-21 14:13] LABS: Troponin 5 2HR Delta 0 ABS# (0-10)
[2021-06-21 14:19] VITALS: BP 180/79; PULSE 58; RESP 20; O2SAT 99
== END 2021-06-21 14:02 | disposition home or self-care (01) ==
PROVIDERS: Emergency Provider Nurse Practitioner Family
DX: R07.89 Other chest pain (principal); F41.1 Generalized anxiety disorder; R06.02 Shortness of breath
CPT/HCPCS: 71045; 80053; 81003; 83880; 84484; 85025; 85610; 93005; 99284